=== PATIENT | female | born 1960 | race Caucasian/White ===

== ENCOUNTER 2017-07-02 13:33 | Emergency (ER) | payer MEDICAID ==
[2017-07-02 13:44] VITALS: BP 138/90; PULSE 70; TEMP 98.1; O2SAT 98
[2017-07-02] MEDS ORDERED: Lidocaine 1% Inj (20ml) INFIL ONE (14:22)
--- NOTE | 2017-07-02 14:30 | C.PDOC ---
History Of Present Illness 56yo female presents to the ED for evaluation of pain and swelling to her right 3rd digit. Patient reports swelling around her nailbed for the past 3 days. She denies any associated fever, chills and offers no additional medical complaints. Time Seen by Provider: 07/02/17 13:53 Chief Complaint (Nursing): Finger,Hand,&Wrist History Per: Patient History/Exam Limitations: no limitations Onset/Duration Of Symptoms: Days (3) Current Symptoms Are (Timing): Still Present Quality: "Pain" Recent travel outside of the [place]: No Additional History Per: Patient Past Medical History Reviewed: Historical Data, Nursing Documentation, Vital Signs Vital Signs: Last Vital Signs Temp 98.1 F 07/02/17 13:42 Pulse 70 07/02/17 13:42 Resp 18 07/02/17 13:42 BP 138/90 07/02/17 13:42 Pulse Ox 98 07/02/17 15:12 - Medical History PMH: Anxiety, Back Problems, Depression Surgical History: Appendectomy Family History: States: Unknown Family Hx - Social History Hx Tobacco Use: Yes Hx Alcohol Use: No Hx Substance Use: No - Immunization History Hx Tetanus Toxoid Vaccination: Yes Hx Influenza Vaccination: No Hx Pneumococcal Vaccination: No Review Of Systems Constitutional: Negative for: Fever, Chills Musculoskeletal: Positive for: Hand Pain (right 3rd digit pain and swelling) Physical Exam - Physical Exam Additional Physical Exam Comments: Constitutional: No acute distress. WDWN. Musculoskeletal: Paronychia noted to lateral nail bed of right 3rd digit. Neurologic: Alert, no focal deficit. ED Course And Treatment O2 Sat by Pulse Oximetry: 98 Medical Decision Making Medical Decision Making: Impression: 36y/o female with paronychia Plan: -- Lidocaine 20ml 1506 -- Digital blocked performed Paronychia drained by provider. Patient tolerated procedure well. Finger wrapped in sterile dressing. Patient stable for discharge home. Disposition Counseled Patient/Family Regarding: Need For Followup - Disposition Referrals: Shaik Rajan MD [Staff Provider] - Disposition: HOME/ ROUTINE Disposition Time: 15:13 Condition: IMPROVED Additional Instructions: Soak finger in warm water several times a day. Follow up with your doctor. Return to ER if swelling returns. Tylenol or Motrin for pain if needed. Forms: [employer] (Citizen [place]), General Discharge Instructions - Clinical Impression Clinical Impression: Paronychia of right middle finger - PA / [employer]INEER / Resident Statement MD/DO has reviewed & agrees with the documentation as recorded. - Scribe Statement The provider has reviewed the documentation as recorded by the Scribe Arline Jimenez All medical record entries made by the Marlonibbill were at my direction and personally dictated by me. I have reviewed the chart and agree that the record accurately reflects my personal performance of the history, physical exam, medical decision making, and the department course for this patient. I have also personally directed, reviewed, and agree with the discharge instructions and disposition.
[2017-07-02] MEDS ORDERED: Lidocaine 1% Inj (20ml) ONE (14:34)
[2017-07-02 15:18] VITALS: RESP 20
== END 2017-07-02 15:17 | disposition home or self-care (01) ==
LOC: C.ER 13:33
DX: L03.011 Cellulitis of right finger (principal)